=== PATIENT | female | born 1965 | race Two or more races ===

== ENCOUNTER 2023-05-23 09:10 | Day surgery (SDC) | payer OTHER ==
[2023-05-23] MEDS ORDERED: KETOROLAC TROMETHAMINE 15 MG/ML VIAL IVPUSH ONE (09:48)
[2023-05-23] MEDS ORDERED: KETOROLAC TROMETHAMINE 15 MG/ML VIAL ONE ×2 (10:09→17:00)
[2023-05-23 10:37] LABS: BASO % 0.6 % (0-2.0); EOS % 0.6 % (0-4.5); HEMATOCRIT 40.9 % (32.4-45.2); HEMOGLOBIN 13.6 GM/dL (10.7-15.3); LYMPH % 19.1 % (8-40); MCH 24.7 pg (25.7-33.7); MCHC 33.2 g/dl (32.0-36.0); MEAN CELL VOLUME 74.4 fl (80-96); MONO % 3.9 % (3.8-10.2); NEUT % 75.8 % (42.8-82.8); PLATELET COUNT 298 10^3/uL (134-434); RBC 5.49 M/mm3 (3.60-5.2); RDW 17.6 % (11.6-15.6); WHITE BLOOD COUNT 7.4 K/mm3 (4.0-10.0)
[2023-05-23] MEDS ORDERED: ACETAMINOPHEN 1000 MG/100 ML BAG IVPB ONE ×2 (10:40→18:44)
[2023-05-23 11:00] LABS: EPI CELLS >36 /uL (0-25.1); HYALINE CASTS 2 /uL (0-3.1); PH,URINE 6.5 (5.0-8.0); URINE APPEARANCE CLOUDY; URINE BACTERIA 5000 /uL (0-1359); URINE BILIRUBIN NEGATIVE (NEGATIVE); URINE COLOR ORANGE; URINE GLUCOSE (UA) NEGATIVE (NEGATIVE); URINE KETONE NEGATIVE (NEGATIVE); URINE LEUK ESTERASE 1+ (NEGATIVE); URINE NITRITE NEGATIVE (NEGATIVE); URINE PROTEIN 1+ (NEGATIVE); URINE RBC 13003 /uL (0-23.9); URINE WBC 205 /uL (0-25.8)
[2023-05-23] MEDS ORDERED: SODIUM CHLORIDE 0.9% 500 ML INFUS.BAG IV ONE (11:10)
[2023-05-23] MEDS ORDERED: CEFTRIAXONE 1 GM in DEXTROSE 5%-WATER - 100 ML IVPB ONE (11:11)
[2023-05-23] MEDS ORDERED: ACETAMINOPHEN INJECTION 100 ML IVPB ONE (11:12)
[2023-05-23 11:23] LABS: POTASSIUM 4.5 mmol/L (3.5-5.1)
[2023-05-23 11:26] LABS: ALBUMIN 4.1 g/dl (3.4-5.0); BLOOD UREA NITROGEN 13.1 mg/dL (7-18); CALCIUM 9.6 mg/dL (8.5-10.1)
[2023-05-23 11:28] LABS: CREATININE 0.8 mg/dL (0.55-1.3)
[2023-05-23 11:31] LABS: BILIRUBIN,TOTAL 0.4 mg/dL (0.2-1); TOT PROT 8.2 g/dl (6.4-8.2)
[2023-05-23] MEDS ORDERED: CEFTRIAXONE 1 GM/50 ML BAG ONE (11:31)
[2023-05-23] MEDS ORDERED: morphine CARPU-JECT 4 MG/1 ML DISP.SYRIN IVPUSH ONE (14:17)
[2023-05-23] MEDS ORDERED: morphine SULFATE 4 MG/ML VIAL ONE (14:31)
[2023-05-23] MEDS ORDERED: ACETAMINOPHEN 500 MG TABLET (FP) PO PRN (15:20)
[2023-05-23] MEDS ORDERED: ONDANSETRON 4 MG/2 ML VIAL ONE (17:00)
[2023-05-23] MEDS ORDERED: TAMSULOSIN HCL 0.4 MG CAP ONE (17:00)
[2023-05-23] MEDS: ONDANSETRON 4 MG/2 ML VIAL IVPUSH PRN ×2 (17:04→21:03)
[2023-05-23] MEDS: LACTATED RINGERS SOLUTION 1,000 ML/1,000 ML INFUS.BAG IV SCH (17:04)
[2023-05-23] MEDS: KETOROLAC TROMETHAMINE 15 MG/ML VIAL IVPUSH PRN (17:04)
[2023-05-23] MEDS: TAMSULOSIN HCL 0.4 MG CAP PO SCH (17:05)
[2023-05-23 19:57] VITALS: BMI 45.5
[2023-05-24] MEDS: KETOROLAC TROMETHAMINE 15 MG/ML VIAL IVPUSH PRN ×2 (00:35→09:47)
[2023-05-24 08:43] LABS: BASO % 0.4 % (0-2.0); EOS % 0.5 % (0-4.5); HEMATOCRIT 39.6 % (32.4-45.2); HEMOGLOBIN 12.6 GM/dL (10.7-15.3); LYMPH % 14.6 % (8-40); MCH 24.4 pg (25.7-33.7); MCHC 31.8 g/dl (32.0-36.0); MEAN CELL VOLUME 76.7 fl (80-96); MEAN PLT VOLUME 7.1 fl (7.5-11.1); NEUT % 79.5 % (42.8-82.8); PLATELET COUNT 236 10^3/uL (134-434); RBC 5.16 M/mm3 (3.60-5.2); RDW 17.3 % (11.6-15.6); WHITE BLOOD COUNT 8.6 K/mm3 (4.0-10.0)
[2023-05-24] MEDS: ONDANSETRON 4 MG/2 ML VIAL IVPUSH PRN (08:50)
[2023-05-24] MEDS: TAMSULOSIN HCL 0.4 MG CAP PO SCH (08:50)
[2023-05-24 09:02] LABS: CALCIUM 8.8 mg/dL (8.5-10.1)
[2023-05-24] MEDS: CEFTRIAXONE 1 GM in DEXTROSE 5%-WATER - 50 ML IVPB SCH (09:47)
[2023-05-24] MEDS: LACTATED RINGERS SOLUTION 1,000 ML/1,000 ML INFUS.BAG IV SCH ×2 (09:47→16:53)
[2023-05-24] MEDS: ACETAMINOPHEN 1000 MG/100 ML BAG IVPB PRN ×2 (10:51→18:05)
[2023-05-24] MEDS ORDERED: PROCHLORPERAZINE INJECTION 10 MG/2 ML VIAL IVPB PRN (11:45)
[2023-05-24] MEDS: PROCHLORPERAZINE INJECTION 10 MG/2 ML VIAL IVPB PRN (17:07)
[2023-05-25] MEDS: PROCHLORPERAZINE INJECTION 10 MG/2 ML VIAL IVPB PRN ×2 (08:07→13:44)
[2023-05-25] MEDS: TAMSULOSIN HCL 0.4 MG CAP PO SCH (10:17)
[2023-05-25] MEDS: CEFTRIAXONE 1 GM in DEXTROSE 5%-WATER - 50 ML IVPB SCH (10:21)
[2023-05-25] MEDS: KETOROLAC TROMETHAMINE 15 MG/ML VIAL IVPUSH PRN ×2 (10:25→17:42)
[2023-05-25 11:16] LABS: BASO % 0.3 % (0-2.0); EOS % 0.5 % (0-4.5); HEMATOCRIT 40.5 % (32.4-45.2); HEMOGLOBIN 12.8 GM/dL (10.7-15.3); MCH 24.3 pg (25.7-33.7); MCHC 31.7 g/dl (32.0-36.0); MEAN CELL VOLUME 76.9 fl (80-96); MEAN PLT VOLUME 7.8 fl (7.5-11.1); MONO % 4.6 % (3.8-10.2); NEUT % 79.6 % (42.8-82.8); PLATELET COUNT 104 10^3/uL (134-434); RBC 5.26 M/mm3 (3.60-5.2); RDW 17.7 % (11.6-15.6); WHITE BLOOD COUNT 6.3 K/mm3 (4.0-10.0)
[2023-05-25] MEDS ORDERED: ACETAMINOPHEN 325 MG TABLET (FP) PO PRN ×2 (11:39→22:38)
[2023-05-25 11:51] LABS: ALBUMIN 3.6 g/dl (3.4-5.0); BILIRUBIN,TOTAL 0.6 mg/dL (0.2-1); CALCIUM 8.7 mg/dL (8.5-10.1); POTASSIUM 4.1 mmol/L (3.5-5.1); TOT PROT 7.5 g/dl (6.4-8.2)
[2023-05-25] MEDS: LACTATED RINGERS SOLUTION 1,000 ML/1,000 ML INFUS.BAG IV SCH (15:09)
[2023-05-25] MEDS ORDERED: BISACODYL 10 MG SUPP.RECT PR PRN ×2 (15:38→22:38)
[2023-05-25] MEDS ORDERED: PROMETHAZINE HCL 25 MG/1 ML VIAL IVPB PRN ×2 (21:09→22:38)
[2023-05-25] MEDS ORDERED: ACETAMINOPHEN 1000 MG/100 ML BAG IVPB ONE (21:09)
[2023-05-25] MEDS ORDERED: LACTATED RINGERS SOLUTION 1,000 ML IV SCH (21:15)
[2023-05-25] MEDS ORDERED: MIDAZOLAM HCL 2 MG/2 ML SINGLE DOSE VIAL ONE (21:29)
[2023-05-25] MEDS ORDERED: GENTAMICIN SO4 80 MG/2 ML VIAL IVPB ONE (21:35)
[2023-05-25] MEDS ORDERED: FENTANYL CITRATE/PF 50 MCG/ML VIAL ONE ×2 (21:41→22:11)
[2023-05-25] MEDS ORDERED: GENTAMICIN SO4 80 MG/2 ML VIAL ONE (21:43)
[2023-05-25] MEDS ORDERED: IOHEXOL 300 MG/ML INFUS..BTL IJ ONE (21:47)
[2023-05-25] MEDS ORDERED: POLYETHYLENE GLYCOL (HEALTHYLAX) 3350 17 GM PACKET PO SCH (22:00)
[2023-05-25] MEDS ORDERED: ACETAMINOPHEN INJECTION 100 ML IVPB ONE (22:14)
[2023-05-25] MEDS ORDERED: KETOROLAC TROMETHAMINE 15 MG/ML VIAL IVPUSH PRN (22:38)
[2023-05-25] MEDS ORDERED: PROCHLORPERAZINE INJECTION 10 MG/2 ML VIAL IVPB PRN (22:38)
[2023-05-25] MEDS ORDERED: LACTATED RINGERS SOLUTION 1,000 ML/1,000 ML INFUS.BAG IV SCH (22:38)
[2023-05-25 22:52] VITALS: RESP 17
[2023-05-26 03:18] VITALS: PULSE 64
[2023-05-26 08:13] VITALS: TEMP 97.6
[2023-05-26] MEDS ORDERED: CEFTRIAXONE 1 GM in DEXTROSE 5%-WATER - 50 ML IVPB SCH (10:00)
[2023-05-26] MEDS ORDERED: POLYETHYLENE GLYCOL (HEALTHYLAX) 3350 17 GM PACKET PO SCH (10:00)
[2023-05-26 12:03] LABS: POTASSIUM 4.5 mmol/L (3.5-5.1)
[2023-05-26 12:05] LABS: CALCIUM 9.8 mg/dL (8.5-10.1)
[2023-05-26 12:06] LABS: ALBUMIN 3.7 g/dl (3.4-5.0); BLOOD UREA NITROGEN 13.2 mg/dL (7-18)
[2023-05-26 12:08] LABS: BILIRUBIN,DIRECT 0.2 mg/dL (0.0-0.2); CREATININE 0.9 mg/dL (0.55-1.3)
[2023-05-26 12:10] LABS: BILIRUBIN,TOTAL 0.4 mg/dL (0.2-1); TOT PROT 7.5 g/dl (6.4-8.2)
[2023-05-26 12:33] LABS: BASO % 0.1 % (0-2.0); HEMATOCRIT 38.8 % (32.4-45.2); HEMOGLOBIN 12.2 GM/dL (10.7-15.3); LYMPH % 6.9 % (8-40); MCH 24.1 pg (25.7-33.7); MCHC 31.5 g/dl (32.0-36.0); MEAN CELL VOLUME 76.5 fl (80-96); MEAN PLT VOLUME 7.4 fl (7.5-11.1); MONO % 6.1 % (3.8-10.2); NEUT % 86.9 % (42.8-82.8); PLATELET COUNT 275 10^3/uL (134-434); RBC 5.07 M/mm3 (3.60-5.2); RDW 17.2 % (11.6-15.6); WHITE BLOOD COUNT 9.2 K/mm3 (4.0-10.0)
[2023-05-26 14:38] VITALS: BP 152/74
== END 2023-05-26 16:48 | disposition home or self-care (01) ==
LOC: JER 09:10 → UNDOADMIN 14:51 → JERBED 14:51 → J5S 17:24 → JERBED 17:24 → JASUSAT 05-24 13:26 → SUATTDRO 05-24 13:26 → J5S 05-24 13:46 → JASUSAT 05-26 16:48
PROVIDERS: ATTEND Internal Medicine
PROC: 0T778DZ Dilation of Left Ureter with Intraluminal Device, Via Natural or Artificial Opening Endoscopic (ICD-10-PCS; principal; 2023-05-24)
DX: N13.2 Hydronephrosis with renal and ureteral calculous obstruction (principal)
CPT/HCPCS: 36415; 74176-TC; 76000-TC-FY; 80048; 80053; 80076; 81003; 85025; 87086; 93005; 93010; 94760; 99285-25; C1758; C2617

== ENCOUNTER 2023-06-19 04:52 | Day surgery (SDC) | payer OTHER ==
[2023-06-16 08:14] VITALS: BMI 46.0
[2023-06-19] MEDS ORDERED: MIDAZOLAM HCL 2 MG/2 ML SINGLE DOSE VIAL ONE (14:16)
[2023-06-19] MEDS ORDERED: ONDANSETRON 4 MG/2 ML VIAL ONE (14:16)
[2023-06-19] MEDS ORDERED: FENTANYL CITRATE/PF 50 MCG/ML VIAL ONE ×2 (14:16→14:48)
[2023-06-19] MEDS ORDERED: SEVOFLURANE 250 ML BTL ONE (14:18)
[2023-06-19 17:01] VITALS: BP 170/84; PULSE 70; RESP 20; TEMP 98
== END 2023-06-19 17:00 | disposition home or self-care (01) ==
LOC: JASU-SURG 04:52
PROVIDERS: ATTEND Urology
PROC: 0TF4XZZ Fragmentation in Left Kidney Pelvis, External Approach (ICD-10-PCS; principal; 2023-06-19 14:00)
DX: N20.0 Calculus of kidney (principal)

== ENCOUNTER 2023-08-01 04:29 | Day surgery (SDC) | payer OTHER ==
[2023-07-26 18:11] VITALS: BMI 46.0
[2023-08-01] MEDS ORDERED: MIDAZOLAM HCL 2 MG/2 ML SINGLE DOSE VIAL ONE (11:48)
[2023-08-01] MEDS ORDERED: PROPOFOL 40 ML ONE (11:48)
[2023-08-01] MEDS ORDERED: ONDANSETRON 4 MG/2 ML VIAL ONE ×2 (11:49→14:59)
[2023-08-01] MEDS ORDERED: DEXAMETHASONE SOD PHOSPHATE 4 MG/1 ML VIAL ONE (11:49)
[2023-08-01] MEDS ORDERED: KETOROLAC TROMETHAMINE 30 MG/1 ML VIAL ONE (11:49)
[2023-08-01] MEDS ORDERED: LIDOCAINE HCL/PF 2% SDV 5ML VIAL ONE (11:49)
[2023-08-01] MEDS ORDERED: ONDANSETRON 4 MG/2 ML VIAL IVPUSH PRN (11:54)
[2023-08-01] MEDS ORDERED: ACETAMINOPHEN 1000 MG/100 ML BAG IVPB PRN (11:54)
[2023-08-01] MEDS ORDERED: PROMETHAZINE HCL 25 MG/1 ML VIAL IVPB PRN (11:54)
[2023-08-01] MEDS ORDERED: oxyCODONE HCL 5 MG TABLET PO PRN (11:54)
[2023-08-01] MEDS ORDERED: LACTATED RINGERS SOLUTION 1,000 ML IV SCH (12:00)
[2023-08-01] MEDS ORDERED: GENTAMICIN 80MG PREMIX BAG IVPB ONE (12:52)
[2023-08-01] MEDS ORDERED: GENTAMICIN SO4 80 MG/2 ML VIAL ONE (12:52)
[2023-08-01] MEDS ORDERED: ceFAZolin SODIUM 1 GM VIAL IVPB ONE (12:52)
[2023-08-01] MEDS ORDERED: ceFAZolin SODIUM 1 GM VIAL ONE (12:55)
[2023-08-01] MEDS ORDERED: IOVERSOL 300 MG/ML ML IV ONE (13:00)
[2023-08-01] MEDS ORDERED: SEVOFLURANE 250 ML BTL ONE (13:21)
[2023-08-01] MEDS ORDERED: ACETAMINOPHEN INJECTION 100 ML IVPB ONE (15:20)
[2023-08-01] MEDS ORDERED: PROMETHAZINE HCL 25 MG/1 ML VIAL ONE (15:27)
[2023-08-01 16:24] VITALS: TEMP 97
[2023-08-01] MEDS ORDERED: oxyCODONE HCL 5 MG TABLET ONE (16:29)
[2023-08-01 17:17] VITALS: BP 140/72; PULSE 68; RESP 20
[2023-08-10 05:07] LABS: CA OXALATE MONOHYDR. 90 % (.); SIZE 4x3 mm (.); WEIGHT 30 mg (.)
== END 2023-08-01 17:23 | disposition home or self-care (01) ==
LOC: JASU-SURG 04:29
PROVIDERS: ATTEND Urology
PROC: 0TC78ZZ Extirpation of Matter from Left Ureter, Via Natural or Artificial Opening Endoscopic (ICD-10-PCS; principal; 2023-08-01 12:00)
PROC: 0T778DZ Dilation of Left Ureter with Intraluminal Device, Via Natural or Artificial Opening Endoscopic (ICD-10-PCS; 2023-08-01 12:00)
DX: N20.1 Calculus of ureter (principal)
CPT/HCPCS: 36415; 76000-TC-FY; 82360; 94760; C1758; C2617

== ENCOUNTER 2023-08-22 17:28 | Emergency (ER) | payer OTHER ==
[2023-08-22 17:37] VITALS: TEMP 98.4; BMI 46.0
[2023-08-22] MEDS ORDERED: ACETAMINOPHEN 500 MG TABLET (FP) PO ONE (17:53)
[2023-08-22] MEDS ORDERED: ACETAMINOPHEN 500 MG TABLET (FP) ONE (18:04)
[2023-08-22] MEDS ORDERED: LIDOCAINE HCL 2% (50ML VIAL) SQ ONE (18:16)
[2023-08-22] MEDS ORDERED: LIDOCAINE HCL 2% (20ML MULTI-DOSE VIAL) ONE (18:36)
[2023-08-22] MEDS ORDERED: KETOROLAC TROMETHAMINE 30 MG/1 ML VIAL IM ONE (18:41)
[2023-08-22] MEDS ORDERED: KETOROLAC TROMETHAMINE 30 MG/1 ML VIAL ONE (18:42)
[2023-08-22 19:52] VITALS: BP 194/114; PULSE 78; RESP 20
== END 2023-08-22 20:05 | disposition home or self-care (01) ==
LOC: JERFT 17:28
PROC: 3E0233Z Introduction of Anti-inflammatory into Muscle, Percutaneous Approach (ICD-10-PCS; principal; 2023-08-22)
PROC: 2W3QX1Z Immobilization of Right Lower Leg using Splint (ICD-10-PCS; 2023-08-22)
DX: S62.91XA Unspecified fracture of right hand, initial encounter for closed fracture (principal); W00.0XXA Fall on same level due to ice and snow, initial encounter; Y93.89 Activity, other specified
CPT/HCPCS: 73110-TC-RT-FY; 73130-TC-RT-FY; 99284-25

== ENCOUNTER 2023-12-16 16:31 | Emergency (ER) | payer OTHER ==
[2023-12-16 16:38] VITALS: BP 173/78; PULSE 80; RESP 18; TEMP 97.6; BMI 42.5
[2023-12-16] MEDS ORDERED: IBUPROFEN 600 MG TABLET (FP) PO ONE (17:41)
[2023-12-16] MEDS ORDERED: LIDOCAINE HCL 2% JELLY 11 ML TP ONE (17:42)
[2023-12-16] MEDS: ACETAMINOPHEN 500 MG TABLET (FP) PO ONE (17:54)
[2023-12-16] MEDS: LIDOCAINE HCL 2% JELLY (30 ML/TUBE) TP ONE (17:54)
[2023-12-16] MEDS: KETOROLAC TROMETHAMINE 30 MG/1 ML VIAL IM ONE (17:55)
[2023-12-16] MEDS: IBUPROFEN 600 MG TABLET (FP) PO ONE (17:55)
[2023-12-16] MEDS ORDERED: ACETAMINOPHEN 500 MG TABLET (FP) ONE (18:01)
== END 2023-12-16 18:26 | disposition home or self-care (01) ==
LOC: JER 16:31
DX: K64.4 Residual hemorrhoidal skin tags (principal); K62.89 Other specified diseases of anus and rectum
CPT/HCPCS: 99283-25